=== PATIENT | female | born 1985 | race Two or more races ===

== ENCOUNTER 2019-04-13 07:43 | Emergency (ER) | payer OTHER ==
--- NOTE | 2019-04-13 09:24 | ER Document Report ---
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 States that she went to [facility] ago but they told her that she did not to be seen need to be seen because it was not emergent. She does not think that she is but she is sexua lly active. Patient has been and has 5 children. She is also had miscarriages and a stillborn. Describes feeling bloated. No nausea or vomiting. No pain or cramping. No vaginal discharge. TRAVEL OUTSIDE OF THE [place] IN LAST 30 DAYS: No - HPI Quality of pain: No pain Vaginal bleeding (Compared to normal period): Heavier Sexual history: Active Past Medical History - General Last Menstrual Period: AUGUST - Social History Smoking Status: Former Smoker Frequency of alcohol use: None Drug Abuse: None Family History: Reviewed & Not Pertinent Patient has suicidal ideation: No Patient has homicidal ideation: No Review of Systems - Review of Systems -: Yes All other systems reviewed and negative Physical Exam - Vital signs Vitals: Temp Pulse Resp BP Pulse Ox 97.6 F 64 16 117/68 99 04/13/19 07:47 04/13/19 07:47 04/13/19 07:47 04/13/19 07:47 04/13/19 07:47 Interpretation: Normal - General General appearance: Appears well, Alert - HEENT Head: Normocephalic, Atraumatic Eyes: Normal Pupils: PERRL - Respiratory Respiratory status: No respiratory distress Chest status: Nontender Breath sounds: Normal Chest palpation: Normal - Cardiovascular Rhythm: Regular Heart sounds: Normal auscultation Murmur: No - Abdominal Inspection: Normal Distension: Distended Bowel sounds: Normal Tenderness: Nontender Organomegaly: No organomegaly - Back Back: Normal, Nontender - Extremities General upper extremity: Normal inspection, Nontender, Normal color, Normal ROM, Normal temperature General lower extremity: Normal inspection, Nontender, Normal color, Normal ROM, Normal temperature, Normal weight bearing. No: Evelin's sign - Neurological Neuro grossly intact: Yes Cognition: Normal Orientation: AAOx4 [place] Coma Scale Eye Opening: Spontaneous [place] Coma Scale Verbal: Oriented [place] Coma Scale Motor: Obeys Commands [place] Coma Scale Total: 15 Speech: Normal Motor strength normal: LUE, RUE, LLE, RLE Sensory: Normal - Psychological Associated symptoms: Normal affect, Normal mood - Skin Skin Temperature: Warm Skin Moisture: Dry Skin Color: Normal Course - Re-evaluation Re-evalutation: 04/13/19 10:44 Blood work and ultrasound pending. No pain at this time. 04/13/19 13:21 Patient appears well. Vitals are stable. Presents after 4 weeks of vaginal bleeding. Patient has a robust hemoglobin of over 14 with no evidence for life- threatening bleeding. Ultrasound with ovarian cysts. Patient is not . She has an appointment with [facility] but not until the end of April. We have had a discussion regarding taking control versus the patient dealing with the bleeding. States that control pills make her gain weight and she does not want to do that at this time. I do not have anything further to offer this patient with menorrhagia at this time. She is to follow-up with her [facility] as scheduled and return if she has further concerns or symptoms. Stable for discharge. - Vital Signs Vital signs: Temp Pulse Resp BP Pulse Ox 97.6 F 64 16 117/68 99 04/13/19 09:00 04/13/19 09:00 04/13/19 09:00 04/13/19 09:00 04/13/19 09:00 - Laboratory Result Diagrams: 04/13/19 09:38 04/13/19 09:38 Laboratory results interpreted by me: 04/13/19 11:08 Urine Blood MODERATE H Discharge - Discharge Clinical Impression: Menorrhagia Qualifiers: Menorrahagia type: with irregular cycle Qualified Code(s): N92.1 - Excessive and frequent menstruation with irregular cycle Condition: Stable Disposition: HOME, SELF-CARE Instructions: Menorrhagia ([facility]) Referrals: [facility] [Provider Group] - Follow up as needed
[2019-04-13 10:29] LABS: ABSOLUTE EOSINOPHILS # (AUTO) 0.1 10^3/uL (0.0-0.6); ABSOLUTE LYMPHOCYTES (AUTO) 1.5 10^3/uL (0.5-4.7); ABSOLUTE MONOCYTES (AUTO) 0.3 10^3/uL (0.1-1.4); ABSOLUTE NEUT (AUTO) 3.6 10^3/uL (1.7-8.2); BASOPHILS % (AUTO) 0.4 % (0-2); EOSINOPHILS % (AUTO) 1.9 % (0-6); HEMATOCRIT 43.2 % (36.0-47.0); HEMOGLOBIN 14.6 g/dL (12.0-15.5); MEAN CORPUSCULAR HEMOGLOBIN 28.2 pg (27.0-33.4); MEAN CORPUSCULAR HGB CONC 33.7 g/dL (32.0-36.0); MEAN CORPUSCULAR VOLUME 84 fl (80-97); MONOCYTES % (AUTO) 4.8 % (3-13); PLATELET COUNT 223 10^3/uL (150-450); RED BLOOD COUNT 5.17 10^6/uL (3.72-5.28); RED CELL DISTRIBUTION WIDTH 13.9 % (11.5-14.0); SEGMENTED NEUTROPHILS % (AUTO) 65.9 % (42-78); TOTAL CELLS COUNTED % (AUTO) 100 %; WHITE BLOOD COUNT 5.5 10^3/uL (4.0-10.5)
[2019-04-13 10:39] LABS: ANION GAP 9 (5-19); BLOOD UREA NITROGEN 14 mg/dL (7-20); CALCIUM 9.6 mg/dL (8.4-10.2); CARBON DIOXIDE 29 mmol/L (22-30); CHLORIDE 100 mmol/L (98-107); GLUCOSE 91 mg/dL (75-110)
[2019-04-13 11:31] LABS: APPEARANCE,URINE SLIGHTLY-CLOUDY; BILIRUBIN,URINE NEGATIVE (NEGATIVE); COLOR,URINE YELLOW; GLUCOSE, URINE NEGATIVE (NEGATIVE); KETONES,URINE NEGATIVE (NEGATIVE); LEUKOCYTE ESTERASE,URINE NEGATIVE (NEGATIVE); NITRITE,URINE NEGATIVE (NEGATIVE); PROTEIN,URINE NEGATIVE (NEGATIVE); URINE SPECIFIC GRAVITY 1.017; UROBILINOGEN,URINE NEGATIVE mg/dL (<2.0)
--- NOTE | 2019-04-13 12:33 | RADIOLOGY REPORT (SQ) ---
EXAM DESCRIPTION: U/S NON-OB PELVIS TV W/O DOP COMPLETED DATE/TIME: 04/13/2019 12:12 pm REASON FOR STUDY: menorrhagia COMPARISON: None. TECHNIQUE: Dynamic and static grayscale images acquired of the pelvis via transvaginal approach and recorded on PACS. Additional selected color Doppler and spectral images recorded. LIMITATIONS: None. FINDINGS: UTERUS: The uterus is oriented retroverted and it measures 7.8 x 5 x 6.4 cm. The echotext ure of the myometrium is homogeneous. ENDOMETRIAL STRIPE: The endometrial stripe measures 8.5 mm in thickness CERVIX: There are nabothian cysts in the pelvic. The cervix measures 1.5 cm in length. RIGHT OVARY AND DOPPLER: The right ovary measures 5.3 x 4.8 x 3.5 cm. There is an anechoic cystic le tonya with posterior acoustic enhancement in the left ovary that measures 5.3 x 4.1 x 3.5 cm. On Dopp ler there is flow within the ovarian stroma. LEFT OVARY AND DOPPLER: The left ovary measures 3.3 x 1.2 x 1.6 cm on on Doppler there is flow within the stroma. FREE FLUID: There is a trace amount of free fluid. OTHER: No other finding. IMPRESSION: Cystic right ovarian lesion that measures 5.3 x 4.1 x 3.5 cm. The lesion is anechoic wi th posterior acoustic enhancement, smooth margins and no solid components or internal septations. Co nsider a follow-up US in 6 to 12 weeks to ensure resolution. TECHNICAL DOCUMENTATION: JOB ID: [id number] [employer]- All Rights Reserved Rev Reading location - IP/workstation name: [email or web address]
[2019-04-13 13:40] VITALS: BP 116/78
== END 2019-04-13 13:38 | disposition home or self-care (01) ==
LOC: ER 07:43
DX: N92.1 Excessive and frequent menstruation with irregular cycle (principal); N83.201 Unspecified ovarian cyst, right side; R14.0 Abdominal distension (gaseous); Z87.891 Personal history of nicotine dependence
CPT/HCPCS: 36415; 76830; 80048; 81001; 81025; 84702; 85025; 99284